=== PATIENT | male | born 1950 | race Two or more races ===

== ENCOUNTER 2021-02-02 07:25 | Outpatient (CLI) | payer OTHER | END 2021-02-02 07:33 | disposition home or self-care (01) | LOC: TOM 07:25 | PROVIDERS: ATTEND Internal Medicine | DX: K57.20 Diverticulitis of large intestine with perforation and abscess without bleeding (principal) ==

== ENCOUNTER 2024-04-10 07:54 | Outpatient (CLI) | payer OTHER | END 2024-04-10 08:04 | disposition home or self-care (01) | LOC: SONOGRAMA 07:54 | PROVIDERS: ATTEND Internal Medicine | DX: R80.9 Proteinuria, unspecified (principal) ==

== ENCOUNTER 2025-03-29 14:52 | Outpatient (CLI) | payer OTHER | END 2025-03-29 14:56 | disposition home or self-care (01) | LOC: SONOGRAMA 14:52 | PROVIDERS: ATTEND Internal Medicine | DX: R80.9 Proteinuria, unspecified (principal) ==